=== PATIENT | female | born 1965 | race Two or more races ===

== ENCOUNTER 2024-02-24 10:50 | Emergency (ER) | payer OTHER ==
[~2024-02-24] VITALS: Ht 160 cm; Wt 84.8 kg
[2024-02-24] MEDS ORDERED: SYNTHROID125 MCG PO (10:59)
[2024-02-24] MEDS ORDERED: ROSUVASTATIN CA10 MG PO (10:59)
== END 2024-02-24 13:23 | disposition home or self-care (01) ==
LOC: ER 10:51
DX: R09.89 Other specified symptoms and signs involving the circulatory and respiratory systems (principal)